=== PATIENT | male | born 1995 | race Caucasian/White ===

== ENCOUNTER 2020-07-14 14:58 | Emergency (ER) | payer OTHER ==
[~2020-07-14] VITALS: Ht 162.6 cm; Wt 81.8 kg
--- NOTE | 2020-07-14 16:50 | REP ---
INDICATION: trauma COMPARISON: None. TECHNIQUE: Four views left foot. FINDINGS: There is a minimally displaced fracture at the lateral base of the 1st distal phalanx extending into the interphalangeal joint. I see no other evidence of acute fracture or dislocation. IMPRESSION: There is a minimally displaced fracture at the lateral base of the 1st distal phalanx extending into the interphalangeal joint. <Electronically signed by Rock Garcia > 07/14/20 [id number]
[2020-07-14] MEDS ORDERED: KETOROLAC TROMETHAMINE 10 MG TAB PO ONE (18:15)
[2020-07-14 19:07] VITALS: BP 132/86
== END 2020-07-14 19:08 | disposition home or self-care (01) ==
LOC: M ED 14:58
DX: S92.422A Displaced fracture of distal phalanx of left great toe, initial encounter for closed fracture (principal); W22.8XXA Striking against or struck by other objects, initial encounter; Y92.9 Unspecified place or not applicable; Y93.9 Activity, unspecified; Y99.9 Unspecified external cause status